=== PATIENT | female | born 1990 | race American Indian/Alaskan Native ===

== ENCOUNTER 2020-07-30 21:29 | Emergency (ER) | payer SELFPAY ==
[2020-07-30 23:15] LABS: Hematocrit 30.7 % (30.3-42.9); Hemoglobin 10.6 gm/dl (10.1-14.3); Mean Corpuscular HGB Conc 35 % (30-34); Mean Corpuscular Volume 77 fl (79-97); Platelet Count 193 K/mm3 (140-440); Red Blood Count 3.99 M/mm3 (3.65-5.03); Red Cell Distribution Width 18.3 % (13.2-15.2)
[2020-07-30] MEDS ORDERED: HYDROmorphone 1 MG/1 ML INJ IV ONE (23:55)
[2020-07-30] MEDS ORDERED: OXYMETAZOLINE 0.05% NASAL SPRAY NS ONE (23:55)
[2020-07-31] MEDS ORDERED: SODIUM CHLORIDE 0.9% 1000 ML 1,000 ML IV ONE (00:18)
--- NOTE | 2020-07-31 00:19 | Emergency Department Report ---
ED General Adult HPI - General Chief complaint: Sickle Cell Crisis Stated complaint: ALLERGIES/BODYACHE/HEADACHE Time Seen by Provider: 07/30/20 23:34 Source: patient Mode of arrival: Ambulatory Limitations: No Limitations - History of Present Illness Initial comments: Patient is a 30-year-old female who presents with body pain and stuffy nose. She states the body pain is severe she states is similar to her sickle cell symptoms. Patient states that she also has a headache and has been feeling weak. Patient's body pain is severe she denies having nausea or vomiting she states that this occurred suddenly nothing makes it better nothing makes it wo rse. - Related Data Previous Rx's Medication Instructions Recorded Last Taken Type oxyCODONE /ACETAMINOPHEN [Percocet 1 tab PO Q6HR PRN #11 tablet 07/31/20 Unknown Rx 5/325] Allergies Allergy/AdvReac Type Severity Reaction Status Date / Time No Known Allergies Allergy Verified 07/30/20 23:44 ED Review of Systems ROS: Stated complaint: ALLERGIES/BODYACHE/HEADACHE Other details as noted in HPI Constitutional: denies: chills, fever Eyes: denies: eye pain, eye discharge, vision change ENT: denies: ear pain, throat pain Respiratory: cough. denies: shortness of breath, wheezing Cardiovascular: denies: chest pain, palpitations Endocrine: no symptoms reported Gastrointestinal: denies: abdominal pain, nausea, diarrhea Genitourinary: denies: urgency, dysuria, discharge Musculoskeletal: denies: back pain, joint swelling, arthralgia Skin: denies: rash, lesions Neurological: headache. denies: weakness, paresthesias Psychiatric: denies: anxiety, depression Hematological/Lymphatic: denies: easy bleeding, easy bruising ED Past Medical Hx - Past Medical History Previous Medical History?: Yes Hx Sickle Cell Disease: Yes - Social History Smoking Status: Never Smoker Substance Use Type: None - Medications Home Medications: Home Medications Medication Instructions Recorded Confirmed Last Taken Type oxyCODONE /ACETAMINOPHEN [Percocet 1 tab PO Q6HR PRN #11 tablet 07/31/20 Unknown Rx 5/325] ED Physical Exam - General Limitations: No Limitations General appearance: alert, in no apparent distress - Head Head exam: Present: atraumatic, normocephalic - Eye Eye exam: Present: normal appearance - ENT ENT exam: Present: mucous membranes moist - Neck Neck exam: Present: normal inspection - Respiratory Respiratory exam: Present: normal lung sounds bilaterally. Absent: respiratory distress - Cardiovascular Cardiovascular Exam: Present: regular rate, normal rhythm. Absent: systolic murmur, diastolic murmur, rubs, gallop - GI/Abdominal GI/Abdominal exam: Present: soft, normal bowel sounds - Extremities Exam Extremities exam: Present: normal inspection - Back Exam Back exam: Present: normal inspection - Neurological Exam Neurological exam: Present: alert, oriented X3 - Psychiatric Psychiatric exam: Present: normal affect, normal mood - Skin Skin exam: Present: warm, dry, intact, normal color. Absent: rash ED Course Vital Signs 07/30/20 07/30/20 07/30/20 22:33 23:40 23:45 Temperature 98.5 F 98.2 F Pulse Rate 80 66 63 Respiratory 18 18 13 Rate Blood Pressure 122/71 102/65 Blood Pressure 108/71 [Left] O2 Sat by Pulse 99 100 99 Oximetry 07/31/20 07/31/20 07/31/20 00:01 00:15 00:31 Temperature Pulse Rate 59 L 58 L 65 Respiratory 15 14 Rate Blood Pressure 103/63 98/53 103/63 Blood Pressure [Left] O2 Sat by Pulse 99 99 100 Oximetry 07/31/20 07/31/20 07/31/20 00:40 00:45 01:10 Temperature Pulse Rate 66 Respiratory 18 14 18 Rate Blood Pressure 116/76 Blood Pressure [Left] O2 Sat by Pulse 100 Oximetry - Reevaluation(s) Reevaluation #1: 07/31/20 01:56 Pt is feeling better after fluids and pain medication I will discharge patient home ED Medical Decision Making - Lab Data Result diagrams: 07/30/20 22:45 Lab Results 07/30/20 Range/Units 22:45 WBC 6.9 (4.5-11.0) K/mm3 RBC 3.99 (3.65-5.03) M/mm3 Hgb 10.6 (10.1-14.3) gm/dl Hct 30.7 (30.3-42.9) % MCV 77 L (79-97) fl MCH 27 L (28-32) pg MCHC 35 H (30-34) % RDW 18.3 H (13.2-15.2) % Plt Count 193 (140-440) K/mm3 Percent Retic 2.80 H (0.78-2.58) % - Medical Decision Making CDX: Sickle cell crisis DDx: Vaso-occlusive crisis, dehydration I will give IV fluids IV pain medicine I will get CBC and reticulocyte count Critical care attestation.: If time is entered above; I have spent that time in minutes in the direct care of this critically ill patient, excluding procedure time. 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
[2020-07-31] MEDS ORDERED: oxyCODONE /ACETAMINOPHEN 5-325MG TAB PO ONE (00:50)
[2020-07-31 02:10] VITALS: BP 121/75
== END 2020-07-31 02:09 | disposition home or self-care (01) ==
LOC: ED 21:29
DX: D57.1 Sickle-cell disease without crisis (principal); R09.81 Nasal congestion; J34.89 Other specified disorders of nose and nasal sinuses; Z98.890 Other specified postprocedural states; Z79.899 Other long term (current) drug therapy
CPT/HCPCS: 36415; 85027; 85045; 96361; 96374; 99283; J1170; J7030